=== PATIENT | female | born 1970 | race Caucasian/White ===

== ENCOUNTER 2018-09-26 13:49 | Emergency (ER) | payer SELFPAY ==
--- NOTE | 2018-09-26 15:48 | RAD ---
THREE VIEWS RIGHT HAND 09/26/18 COMPARISON: None. HISTORY: Thumb pain. FINDINGS: No displaced fracture or dislocation. IMPRESSION: No acute osseous abnormality. POS: [facility]
== END 2018-09-26 15:17 | disposition home or self-care (01) ==
LOC: ERS 13:49
DX: M79.644 Pain in right finger(s) (principal); I10 Essential (primary) hypertension; F41.9 Anxiety disorder, unspecified; F31.9 Bipolar disorder, unspecified; F17.210 Nicotine dependence, cigarettes, uncomplicated